=== PATIENT | male | born 2000 | race Caucasian/White ===

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

== ENCOUNTER 2019-01-21 21:51 | Emergency (ER) | payer SELFPAY ==
[~2019-01-21] VITALS: Ht 170.1 cm; Wt 127.0 kg
[2019-01-21 21:52] VITALS: BP 130/79
[2019-01-21] MEDS ORDERED: AUGMENTIN 875-875 MG PO (22:37)
== END 2019-01-21 22:50 | disposition home or self-care (01) ==
LOC: ED 21:51
DX: H66.93 Otitis media, unspecified, bilateral (principal); J02.9 Acute pharyngitis, unspecified

== ENCOUNTER 2022-02-03 12:43 | Emergency (ER) | payer OTHER ==
[~2022-02-03] VITALS: Ht 170.1 cm; Wt 142.9 kg
[~2022-02-03 12:43] MED LIST changes: +AUGMENTIN 875-875 MG PO
[2022-02-03 12:57] VITALS: BP 121/64
== END 2022-02-03 14:40 | disposition home or self-care (01) ==
LOC: ED 12:43
DX: J10.1 Influenza due to other identified influenza virus with other respiratory manifestations (principal); Z20.822 Contact with and (suspected) exposure to COVID-19

== ENCOUNTER 2022-04-11 10:41 | Emergency (ER) | payer OTHER ==
[~2022-04-11] VITALS: Wt 140.6 kg
[2022-04-11 10:54] VITALS: BP 128/70
[2022-04-11] MEDS ORDERED: ANTIFUNGAL30 GM T (11:05)
== END 2022-04-11 11:13 | disposition home or self-care (01) ==
LOC: ED 10:41
DX: B35.2 Tinea manuum (principal); J06.9 Acute upper respiratory infection, unspecified; Z20.822 Contact with and (suspected) exposure to COVID-19

== ENCOUNTER → 2022-05-09 | Outpatient (CLI) | payer OTHER ==
[~2022-05-09] MED LIST changes: +ANTIFUNGAL30 GM T
== END | disposition home or self-care (01) ==
LOC: RESCLI 00:53
PROVIDERS: ATTEND Internal Medicine
DX: Z00.00 Encounter for general adult medical examination without abnormal findings (principal); Z82.49 Family history of ischemic heart disease and other diseases of the circulatory system; F10.90 Alcohol use, unspecified, uncomplicated

== ENCOUNTER → 2022-05-14 | Outpatient (CLI) | payer OTHER ==
[2022-05-14 10:53] LABS: CHOLESTEROL 137 mg/dL (<200); LDL CHOLESTEROL 75 mg/dL (9-159); TRIGLYCERIDES 119 mg/dl (<150)
== END | disposition home or self-care (01) ==
LOC: LAB 10:13
PROVIDERS: ATTEND Internal Medicine
DX: Z00.00 Encounter for general adult medical examination without abnormal findings (principal)

== ENCOUNTER 2022-12-19 08:14 | Emergency (ER) | payer OTHER ==
[~2022-12-19] VITALS: Ht 180.3 cm; Wt 136.1 kg
[2022-12-19 08:26] VITALS: BP 129/82
[2022-12-19] MEDS ORDERED: CYCLOBENZAPRINE5 M3 PO (10:46)
== END 2022-12-19 10:48 | disposition home or self-care (01) ==
LOC: ED 08:14
DX: M54.50 Low back pain, unspecified (principal)

== ENCOUNTER 2023-05-31 18:32 | Emergency (ER) | payer OTHER ==
[~2023-05-31] VITALS: Ht 177.8 cm; Wt 141.5 kg
[~2023-05-31 18:32] MED LIST changes: +CYCLOBENZAPRINE5 M3 PO
[2023-05-31 18:52] VITALS: BP 136/74
[2023-05-31] MEDS ORDERED: Lidocaine Hydrochloride 15 ML UDC PO STA (18:57)
[2023-05-31] MEDS ORDERED: BENZOCAINE 20% 11.9 GM GEL T STA (18:57)
[2023-05-31] MEDS ORDERED: ACETAMINOPHEN 325 MG TAB PO ONE (19:00)
[2023-05-31] MEDS ORDERED: PENICILLIN V POTASSIUM 500 MG TAB PO ONE (19:00)
[2023-05-31] MEDS ORDERED: PENICILLIN VK500 MG PO (19:00)
== END 2023-05-31 19:07 | disposition home or self-care (01) ==
LOC: ED 18:32
DX: K08.89 Other specified disorders of teeth and supporting structures (principal)

== ENCOUNTER 2024-04-04 11:53 | Emergency (ER) | payer OTHER ==
[~2024-04-04] VITALS: Ht 177.8 cm; Wt 131.5 kg
[~2024-04-04 11:53] MED LIST changes: +PENICILLIN VK500 MG PO
[2024-04-04 12:09] VITALS: BP 130/66
[2024-04-04] MEDS ORDERED: ACETAMINOPHEN 325 MG TAB PO ONE (12:30)
[2024-04-04] MEDS ORDERED: IBUPROFEN 800 MG TAB PO ONE (12:30)
== END 2024-04-04 13:59 | disposition home or self-care (01) ==
LOC: ED 11:53
DX: J10.1 Influenza due to other identified influenza virus with other respiratory manifestations (principal); Z20.822 Contact with and (suspected) exposure to COVID-19